=== PATIENT | female | born 1975 | race Hispanic/Latino ===

== ENCOUNTER 2024-12-24 12:18 | Emergency (ER) | payer OTHER ==
[~2024-12-24] VITALS: Ht 160 cm; Wt 102.1 kg
--- NOTE | 2024-12-24 12:30 | NUR ---
PT CURRENTLY C/O CHEST PAIN. STATES SHE FEELS SLIGHT CHEST PRESSURE TO THE LEFT SIDE OF THE CHEST WITH A 2/10 PAIN SCALE.
[2024-12-24 12:37] VITALS: TEMP 98.9
--- NOTE | 2024-12-24 12:40 | ERN ---
General Chief Complaint: Chest Pain Stated Complaint: CP Time Seen by MD: 12:23 Source: patient History of Present Illness Initial Comments Patient is a 49-year-old female coming in complaining of left-sided chest pressure chest pain. Patient states that these symptoms began yesterday at night. She states that the symptoms more exacerbated while laying down. She also states that prior to this she had had this same presentation a couple of nights previously. Allergies: Coded Allergies: No Known Drug Allergies (Unverified Allergy, Unknown, 12/24/24) Past Medical History Past Medical History: Asthma, Hypertension Past Surgical History: None ROS Dictation CONSTITUTIONAL: No chills, no fever, no weakness, no diaphoresis, no malaise. HEAD/FACE: No signs of trauma. EENT: No eye pain, no blurred vision, no tearing, no double vision, no ear pain, no ear discharge, no nose pain, no nasal congestion, no throat pain, no throat swelling, no mouth pain. RESPIRATORY: No cough, no orthopnea, no SOB, no stridor, no wheezing. CARDIOVASCULAR: chest pain, no edema, no palpitations, no syncope. GASTROINTESTINAL/ABDOMINAL: No abdominal pain, no constipation, no diarrhea, no nausea, no vomiting. GENITOURINARY: No abnormal discharge, no dysuria, no frequent urination, no hematuria. No complaints of pain in the genitals. MUSCULOSKELETAL: No back pain, no gout, no joint pain, no joint swelling, no muscle pain, no muscle stiffness, no neck pain. INTEGUMENTARY: No change in color, no change in hair/nails, no dryness, no lesion, no lumps, no rash. NEUROLOGICAL/PSYCH: No anxiety, not depressed, no emotional problem, no headache, no numbness, no pre-existing deficit, no history of seizures, no tremors, no weakness. HEMATOLOGIC/LYMPHATIC: Not anemic, no history of blood clots, no apparent bleeding, no bruising, glands not swollen. All Systems Negative, Except as Noted. Physical Exam Physical Exam Dictation VITAL SIGNS: Reviewed. GENERAL APPEARANCE: Alert, oriented x3, no acute distress, obese. HEAD AND FACE: Non-traumatic. EYES: PERRL, pink conjunctivas, eyelid no trauma, anterior chamber clear. EARS: Pinnas intact and no signs of trauma or erythema. Ear canals clear and no discharge. TMs no erythema. NOSE: No discharge, no bleeding. OROPHARYNX: Mouth normal, teeth no caries, tongue pink. Pharynx clear, no erythema. Tonsils no exudates, no abscesses noted. Mucous membrane moist. NECK: Supple, non-tender, no thyromegaly, no masses, no JVD, no bruits. BREAST: Deferred. CHEST: No tenderness, no crepitus, no paradoxical movement, no retractions. LUNGS: Clear, well-ventilated, symmetric, no rales, no wheezing, no rhonchi, no stridor, good breath sounds bilaterally. HEART: Regular rate, regular rhythm, no murmur, no gallops. VASCULAR: No peripheral edema. ABDOMEN: Soft, positive bowel sounds, nondistended, no guarding, nontender, no rebound, no masses no hepatomegaly, no splenomegaly, no Brice's sign, no hernias. RECTAL: Deferred. GENITAL: Deferred. NEUROLOGICAL: Normal speech, gross motor function intact, gross sensory function intact. MUSCULOSKELETAL: Neck nontender, full range of motion, back nontender, full range of motion. EXTREMITIES: Nontender, full range of motion. SKIN: Color pink, dry, no turgor, no rash, no lacerations, no abrasions, no contusions. LYMPHATICS: Deferred. Results Laboratory and Microbiology Lab and Micro Result Laboratory Tests Test 12/24/24 12:49 White Blood Count 9.1 K/uL (4.8-10.8) Red Blood Count 4.88 MIL/uL (4.00-5.50) Hemoglobin 14.0 g/dL (12.0-16.0) Hematocrit 42.9 % (36-48) Mean Corpuscular Volume 87.9 fL (79-99) Mean Corpuscular Hemoglobin 28.7 pg (27.0-33.0) Mean Corpuscular Hemoglobin Concent 32.6 g/dL (32.0-36.0) Red Cell Distribution Width 13.5 % (11.0-15.5) Platelet Count 266 K/uL (130-400) Mean Platelet Volume 10.1 fL (7.5-10.5) Immature Granulocyte % (Auto) 0.2 % (0-1) Neutrophils (%) (Auto) 59.3 % (40.0-77.0) Lymphocytes (%) (Auto) 32.5 % (21.0-51.0) Monocytes (%) (Auto) 6.6 % (3.0-13.0) Eosinophils (%) (Auto) 1.1 % (0.0-8.0) Basophils (%) (Auto) 0.3 % (0.0-5.0) Neutrophils # (Auto) 5.4 K/uL (1.8-7.7) Lymphocytes # (Auto) 3.0 K/uL (1.0-4.8) Monocytes # (Auto) 0.6 K/uL (0.1-1.0) Eosinophils # (Auto) 0.10 K/uL (0.00-0.70) Basophils # (Auto) 0.03 K/uL (0.00-0.20) Absolute Immature Granulocyte (auto 0.02 K/uL (0-1) Nucleated Red Blood Cells 0.0 % (0.0-0.19) Sodium Level 141 mmol/L (136-145) Potassium Level 4.0 mmol/L (3.5-5.1) Chloride Level 104 mmol/L (101-111) Carbon Dioxide Level 30 mmol/L (21-32) Blood Urea Nitrogen 11 mg/dL (7-18) Creatinine 0.5 mg/dL (0.5-1.0) Glomerular Filtration Rate Calc 113 mL/min (>90) Random Glucose 127 mg/dL (70-105) H Total Calcium 8.6 mg/dL (8.5-10.1) Magnesium Level 1.90 mg/dL (1.80-2.40) Total Creatine Kinase 65 U/L (21-232) Troponin I High Sensitivity 4 ng/L (4-50) Labs Reviewed?: Yes EKG/XRAY/US/CT/MRI EKG Comment 12/24/2024 time 12:25 p.m. Ventricular rate [address] wave elevation or depression X-RAY Comment IMAGING REPORT Signed PATIENT: JOSE GUADALUPE LAMBERT MR#: [id number] : 1975 SEX: F AGE: 49 LOCATION: [facility] ORDER [id number] STATUS: REG ER REPORT#: [id number] SERVICE 1236 REASON: cp ORDERING PHYSICIAN: KATHY ESCOBEDO MD PROCEDURE: CXR1VW - CHEST 1VW EXAM: CR Chest, 1 View. CLINICAL HISTORY: cp COMPARISON: None provided. FINDINGS: LUNGS: The lungs show no infiltrate or other acute finding. PLEURAL SPACES: No pleural effusion or pneumothorax. MEDIASTINUM: The cardiomediastinal silhouette is within normal limits. BONES: No aggressive appearing osseous lesion seen. IMPRESSION: No acute cardiopulmonary pathology is evident. /[place] DICTATED BY: TONI TRIPLETT Jr., MD DATE: 12/24/24 152 ELECTRONICALLY SIGNED BY: TONI TRIPLETT Jr., MD DATE: 12/24/24 152 [facility] MDM: Differential diagnosis:, NSTEMI, STEMI, GERD, gastritis Rationale: Tests considered and ordered secondary to shared decision making include: Previous outside records reviewed: Old ER visits. Risk of complication and/or morbidity or mortality of patient management: None Medications-Per medication reconciliation Need for hospitalization: Patient does not meet criteria for hospitalization. Need for emergency major/minor surgery: No Patient is a 49-year-old female coming in complaining of left-sided chest pressure. Laboratory workup within normal limits. Patient received IV Protonix states her symptoms have improved significantly she also received GI cocktail. Patient will be discharged in stable condition with a diagnosis of GERD. I did also advised her appropriate follow up with PCP and/or child care coordinator for stress testing. Patient will be discharged in stable condition has been pain-free throughout ER visit. ED Course Orders Procedure Category Date Status Time Cbc With Differential LAB 12/24/24 Complete 12:36 Chest 1vw RAD 12/24/24 Resulted 12:36 12 Lead Ekg Tracing- EKG 12/24/24 Complete Technical 12:36 0.9%Nacl 1000ml (Ns PHA 12/24/24 Complete 1000ml) 13:00 Magnesium LAB 12/24/24 Complete 12:36 Creatine Kinase, Total LAB 12/24/24 Complete 12:36 Troponin I High LAB 12/24/24 Complete Sensitivity 12:36 Urinalysis Profile LAB 12/24/24 Logged 12:36 Basic Metabolic Panel LAB 12/24/24 Complete 12:36 Pantoprazole 40mg Inj PHA 12/24/24 Complete (Protonix 40mg Inj 13:00 Lidocaine Hcl 2% PHA 12/24/24 Complete Viscous (Lidocaine Hcl 14:00 Mag/Alum/Simeth 30ml PHA 12/24/24 Complete (Maalox Plus 30ml) 14:00 Current Medications Medications (Trade) Dose Ordered Sig/Corky Route PRN Reason Start Time Stop Time Status Last Admin Dose Admin Al Hydroxide/Mg Hydroxide (MAALox PLUS 30ML) 30 ml ONCE ONCE PO 12/24/24 14:00 12/24/24 14:01 DC 12/24/24 14:26 Lidocaine HCl (Lidocaine HCl 2% Viscous) 10 ml ONCE ONCE PO 12/24/24 14:00 12/24/24 14:01 DC 12/24/24 14:26 Pantoprazole Sodium (PROTonix 40MG INJ) 40 mg ONCE ONCE IVP 12/24/24 13:00 12/24/24 13:01 DC 12/24/24 12:58 Sodium Chloride 1,000 ml @ 0 mls/hr ONCE ONCE IV 12/24/24 13:00 12/24/24 13:01 DC 12/24/24 12:58 Vital Signs Date Time Temp Pulse Resp B/P (MAP) Pulse Ox O2 Delivery O2 Flow Rate FiO2 12/24/24 14:31 78 20 119/72 99 Room Air* 0 21 12/24/24 12:37 99.0 85 19 143/76 98 Room Air* 0 21 12/24/24 12:23 98.6 81 18 165/96 98 DX & DISP Disposition: Discharge Departure Impression: Primary Impression: GERD (gastroesophageal reflux disease) Condition: Stable Scripts Pantoprazole Sodium (Protonix) 40 Mg Ectab 1 TAB PO DAILY for 30 Days, #30 TAB 0 Refills Prov: KATHY ESCOBEDO MD 12/24/24 Additional Instructions: FOLLOW-UP WITH PRIMARY CARE PROVIDER IN 1 TO 2 DAYS. TAKE MEDICATIONS DIR ECTED HERE IN THE EMERGENCY ROOM. OKAY TO CONTINUE HOME MEDICATIONS UNLESS OTHERWISE DISCUSSED DURING YOUR VISIT IN THE EMERGENCY ROOM TODAY. RETURN TO YOUR NEAREST EMERGENCY ROOM IF SYMPTOMS WORSEN OR IF THERE IS NO IMPROVEMENT. CALL 911 IF YOU NEED IMMEDIATE ASSISTANCE. TAKE TYLENOL [id number] NEEDED AND IF NO CONTRAINDICATIONS ARE PRESENT. INCREASE ORAL HYDRATION. A WOUND CULTURE OR URINE CULTURE WAS ORDERED HERE IN THE EMERGENCY ROOM DEPARTMENT PLEASE FOLLOW-UP WITH PRIMARY CARE PROVIDER AND ADVISE THEM TO GET REPORTS FROM OUR FACILITY. IF YOU HAD ANY ALFONZO WRAP/SPLINTS THAT WERE APPLIED HERE, PLEASE DO NOT REMOVE THEM UNTIL YOU SEE YOUR PRIMARY CARE OR SPECIALTY. Referrals: Referrals: FREDERICK COLVIN MD (PCP) Time of Disposition: 14:37 KATHY ESCOBEDO MD Dec 24, 2024 12:40
--- NOTE | 2024-12-24 12:50 | EKG ---
[facility] Test Date: 2024-12-24 Test Time: 12:25:54 Pat Name: JOSE GUADALUPE LAMBERT Department: ED Room: Gender: Female [employer]: [id number] : 1975 Requested By: KATHY ESCOBEDO Order Number: [id number] Reading MD: Measurements Intervals [place] Rate: 87 P: 37 MT: 147 QRS: -31 QRSD: 108 T: 36 QT: 401 QTc: 483 Interpretive Statements Sinus rhythm Probable left atrial enlargement Left axis deviation No previous ECG available for comparison Please click the below link to view image of tracing.
[2024-12-24 12:55] LABS: IMMATURE GRANULOCYTE ABSOLUTE 0.02 K/uL (0-1); NUCLEATED RED BLOOD CELLS 0.0 % (0.0-0.19); PLATELET COUNT (AUTO) 266 K/uL (130-400); RED BLOOD CELL COUNT(AUTO) 4.88 MIL/uL (4.00-5.50); RED CELL DISTRIBUTION WIDTH 13.5 % (11.0-15.5); WHITE BLOOD COUNT (AUTO) 9.1 K/uL (4.8-10.8)
[2024-12-24] MEDS: 0.9%NACL 1000ML 1,000 ML IV ONE (12:58)
[2024-12-24 13:09] LABS: CREATININE 0.5 mg/dL (0.5-1.0); GLOMERULAR FILTR. RATE CALC 113.0 mL/min (>90); GLUCOSE,RANDOM 127.0 mg/dL (70-105); SODIUM SERUM 141.0 mmol/L (136-145); UREA NITROGEN, BLOOD 11.0 mg/dL (7-18)
[2024-12-24 13:14] LABS: CREATINE KINASE, TOTAL 65.0 U/L (21-232)
--- NOTE | 2024-12-24 14:23 | HMCIMG ---
EXAM: CR Chest, 1 View. CLINICAL HISTORY: cp COMPARISON: None provided. FINDINGS: LUNGS: The lungs show no infiltrate or other acute finding. PLEURAL SPACES: No pleural effusion or pneumothorax. MEDIASTINUM: The cardiomediastinal silhouette is within normal limits. BONES: No aggressive appearing osseous lesion seen. IMPRESSION: No acute cardiopulmonary pathology is evident. /[place]
[2024-12-24] MEDS: MAG/ALUM/SIMETH 30 ML UDCUP PO ONE (14:26)
[2024-12-24] MEDS: LIDOCAINE HCL 2% VISCOUS 15 ML UDCUP PO ONE (14:26)
[2024-12-24 14:31] VITALS: BP 119/72; PULSE 78; RESP 20; O2SAT 99
[2024-12-24] MEDS ORDERED: PANT40TA55 PO (14:38)
--- NOTE | 2024-12-24 15:06 | NUR ---
PT IV REMOVED. PT TOLERATED PROCEDURE WELL. PRESSURE WAS APPLIED TO RIGHT AC; GAUZE HELD IN PLACE WITH COBAND. STATED SHE NEEDED A COPY OF THE LABS AND WAS REDIRECTED TO USE OUR PT PORTAL OR TO REACH OUT TO MEDICAL RECORDS FOR FURTHER COPIES.
== END 2024-12-24 15:06 | disposition home or self-care (01) ==
LOC: EDH 12:18
DX: K21.9 Gastro-esophageal reflux disease without esophagitis (principal); I10 Essential (primary) hypertension; J45.909 Unspecified asthma, uncomplicated
CPT/HCPCS: 99285; 96374; 71045; 96361; 82550; 83735; 84484; 80048; 85025; 36415; 93005; J7030; J2470